=== PATIENT | male | born 1985 | race Caucasian/White ===

== ENCOUNTER → 2017-07-12 | Outpatient (CLI) | payer BC ==
[2017-07-12 16:46] LABS: HEP C IGG 13 YRS+OLDER_RFLX NEG (NEG)
== END | disposition home or self-care (01) ==
LOC: C.LAB 14:13
PROVIDERS: ATTEND Obstetrics & Gynecology Reproductive Endocrinology
DX: Z31.41 Encounter for fertility testing (principal); Z11.3 Encounter for screening for infections with a predominantly sexual mode of transmission; Z11.4 Encounter for screening for human immunodeficiency virus [HIV]; Z11.59 Encounter for screening for other viral diseases

== ENCOUNTER 2018-08-27 14:05 | Observation (INO) ==
[2018-08-27] MEDS ORDERED: SODIUM CHLORIDE 0.9% 1000ML 1,000 ML IV SCH (14:30)
[2018-08-27 14:34] LABS: Basophils # (auto) 0.02 K/uL (0-0.2); Basophils % (auto) 0.3 %; Eosinophils # (auto) 0.17 K/uL (0-0.5); Eosinophils % (auto) 2.9 %; Hemoglobin 15.1 g/dL (14.0-18.0); Immature Granulocytes # (auto) 0.01 K/uL (0.00-0.02); Immature Granulocytes % (auto) 0.2 %; Lymphocytes # (auto) 2.33 K/uL (1.2-3.4); Lymphocytes % (auto) 40.1 %; Mean Corpuscular Hgb Conc 35.1 g/dL (32-36); Mean Corpuscular Volume 94.1 fL (80-100); Mean Platelet Volume 9.3 fL (7.4-10.4); Monocytes # (auto) 0.77 K/uL (0.11-0.59); Monocytes % (auto) 13.3 %; Neutrophils # (auto) 2.51 K/uL (1.4-6.5); Neutrophils % (auto) 43.2 %; Platelet Count 244 K/uL (130-400); RDW Coefficient of Variation 12.2 % (11.5-14.5); RDW Standard Deviation 41.6 fL (36.4-46.3); Red Blood Count 4.57 M/uL (4.7-6.1); White Blood Count 5.81 K/uL (4.8-10.8)
[2018-08-27 14:51] LABS: Albumin Level 3.9 gm/dl (3.4-5.0); BUN Creatinine Ratio 13.1 (10-20); Calcium 9.2 mg/dl (8.5-10.1); Creatinine Clr Calc Pharmacy 127.3 ml/min; Est GFR (African American) 130.5; Est GFR (Non-African American) 112.6; Potassium 4.1 mmol/L (3.5-5.1)
[2018-08-27] MEDS ORDERED: CIPROFLOXACIN 400 MG/200 ML BAG IV STA (14:52)
[2018-08-27 14:54] LABS: Bilirubin,Total 0.7 mg/dl (0.2-1); Globulin 3.9 gm/dl (2.5-4.0); Total Protein 7.8 gm/dl (6.4-8.2)
--- NOTE | 2018-08-27 14:56 | History & Physical Report ---
Date of Service August 27, 2018 Assessment & Plan (1) Abdominal pain, acute, right lower quadrant: Exam suggests appendicitis, although clinical data equivocal, will proceed with laparoscopy and appendectomy. as above. +rovsing's. +heel tap. +mcburney's discussed options. pt with symptoms for 2 days now discussed bleeding/infection/dvt/pe/leaks/injury to other organs etc... questions answered will proceed with lap appy. History of Present Illness Primary Care Provider: NO PCP 33 y/o male with abdominal pain began 2 days ago and has remained constant, and localizing more to RLQ. No fevers or chills. Ate last around 3:30 this morning. Was in the ED last night, CT was equivocal for appendicitis, white count was normal and he was discharged home. Instructed to return today if his pain continued. Allergies Allergy/AdvReac Type Severity Reaction Status Date / Time Penicillins AdvReac Gastrointestinal Verified 08/27/18 01:43 Upset Home Medications Home Medications Medication Instructions Recorded Confirmed Type ranitidine HCl [Zantac Maximum 150 mg PO DAILY PRN 08/27/18 08/27/18 History Strength] Past Med/Surg History Medical History No pertinent past medical history Social History Preferred Language: Guyanese Feels Safe at Home: Yes Smoking Status: Never smoker Review of Systems Constitutional: no fever and no chills Gastrointestinal: + abdominal pain, + bloating and + diarrhea/loose stools (two times) Physical Exam Vital Signs (Past 24 Hours): Last Vital Signs Temp 36.8 C 08/27/18 14:08 Pulse 68 08/27/18 14:08 Resp 18 08/27/18 14:08 BP 156/88 H 08/27/18 14:08 Pulse Ox 97 08/27/18 14:08 Constitutional: WD/WN, vitals as above Respiratory: normal respiratory effort, lungs clear to auscultation Cardiovascular: RRR, no murmur, no edema Gastrointestinal (Abdomen): Percussion/Palpation: + abdomen tender (RLQ, + heel tap) and abdomen soft Results & Data Diagnostic Findings CT abd pelvis IV con only CLINICAL HISTORY: Right lower quadrant abdominal pain COMPARISON STUDY: None. TECHNIQUE: The patient was scanned in a dynamic helical fashion during intravenous administration of 93 cc Optiray 320 A dose lowering technique was utilized adhering to the principles of ALARA. CT DOSE: 458.94 mGy.cm FINDINGS: Lower chest: There are minor basilar atelectatic changes. Liver: The contrast-enhanced liver is normal in size, contour, and attenuation. There is no intrahepatic biliary ductal dilatation. The hepatic veins and portal veins are patent. Gallbladder: Unremarkable. Spleen: Normal in size and attenuation. Pancreas: Unremarkable. Adrenal glands: Unremarkable. Kidneys: There is symmetric renal cortical enhancement. The kidneys are normal in size without hydronephrosis. Bowel: There are no transition zones indicate bowel obstruction. There is no acute diverticulitis. There is mild dilatation of the appendiceal base which measures 10 mm. The study is equivocal for early acute appendicitis and clinical correlation and/or close follow-up will be necessary. Peritoneum: There is no intraperitoneal free air or abdominal ascites. There is a small fat-containing umbilical hernia Vasculature: The abdominal aorta is normal in course and caliber. Adenopathy: None. Pelvic viscera: The bladder, and pelvic viscera are unremarkable. Skeletal structures: No destructive osseous lesions are seen. IMPRESSION: 1. Study is equivocal for early acute appendicitis with dilatation of the appendiceal base. Clinical correlation and/or close follow-up will be necessary. 2. No evidence of bowel obstruction. No evidence of free air 3. Small fat-containing umbilical hernia Electronically signed by: Tu Gates M.D. 08/27/2018 6:43 AM
--- NOTE | 2018-08-27 15:33 | Emergency Department Note ---
History of Present Illness General Chief complaint: Abdominal Pain Stated complaint: LOWER RIGHT ABD. PAIN Source: patient Mode of arrival: ambulatory Limitations: no limitations History of Present Illness Maximum Pain Intensity: 6 This patient is a 33-year-old male who presents to the emergency department complaining of right lower quadrant abdominal pain. Patient's pain started 2 days ago. He initially had some generalized abdominal pain which soon moved to the right lower quadrant. He has had worsening pain with any movements and walking. Rates his discomfort a 6/10. He denies any nausea/vomiting. He has had a decreased appetite and has not eaten for approximately 12 hours. He was seen here overnight and told to return in 12 hours for recheck. He has not taken any meds for pain. Home Medications Home Medications Medication Instructions Recorded Confirmed Type ranitidine HCl [Zantac Maximum 150 mg PO DAILY PRN 08/27/18 08/27/18 History Strength] Allergies Allergy/AdvReac Type Severity Reaction Status Date / Time Penicillins AdvReac Gastrointestinal Verified 08/27/18 01:43 Upset Past Med/Surg History Medical History No pertinent past medical history Social History Preferred Language: Burkinan Feels Safe at Home: Yes Smoking Status: Never smoker Review of Systems A total of 10 systems reviewed and were otherwise negative Physical Exam Vital Signs Vital Signs - 24 hr 08/27/18 14:08 08/27/18 15:20 Temperature 36.8 C Temperature Source Oral Sepsis Recent Fever Within 48 Hours No Sepsis Action Taken by Nursing No Action Required Pulse Rate 68 Pulse Rate [Right Finger] 58 L Pulse Rhythm Regular Pulse Strength Normal Respiratory Rate 18 16 Respiratory Effort / Characteristics Non-Labored Non-Labored Spontaneous Respiratory Depth Normal Normal Respiratory Pattern Regular Blood Pressure 156/88 H Blood Pressure [Left Arm] 106/66 Blood Pressure Mean 110 Blood Pressure Mean [Left Arm] 79 Blood Pressure Position [Left Arm] Lying Pulse Oximetry 97 99 Oxygen Delivery Method Room Air Room Air VITALS: Vitals are noted on the nurse's note and reviewed by myself. Vital signs stable. GENERAL: This is a 33-year-old male, in no acute distress, nondiaphoretic, well- developed well-nourished. SKIN: The skin was without rashes. MOUTH: Mucous membranes moist. Tonsils are not enlarged. HEART: Regular rate and rhythm without murmurs gallops or rubs. LUNGS: Clear to auscultation bilaterally without wheezes, rales or rhonchi. ABDOMEN: Positive bowel sounds x 4. Soft and nondistended. Tenderness to palpation in the right lower quadrant with guarding and rebound tenderness. Positive Rovsing sign. NEURO: Patient was alert and oriented to person place and time. Course Consultations Consultation #1: Dr. Lugo - general surgery Administered Medications Ciprofloxacin (Cipro) 400 mg in 200 mls @ 200 mls/hr IV NOW STA Stop: 08/27/18 15:51 Last Admin: 08/27/18 15:14 Dose: 200 mls/hr Documented by: [id number] Discontinued Medications Sodium Chloride (Nss 1000ml) 1,000 mls @ 999 mls/hr IV .Q1H1M RCOAEL Stop: 08/27/18 15:30 Last Infusion: 08/27/18 15:28 Dose: 0 mls/hr Documented by: [id number] Admin: 08/27/18 14:30 Dose: 999 mls/hr Documented by: [id number] Medical Decision Making Differential Diagnosis Differential diagnosis includes appendicitis, gastroenteritis, kidney stone, UTI, colitis, diverticulitis, among others. Home Medications Current Medication List: was personally reviewed by me Laboratory Data Attestation: I reviewed the patient's lab results. Result diagrams: 08/27/18 14:17 08/27/18 14:17 Lab Results 08/27/18 08/27/18 Range/Units 14:17 14:17 WBC 5.81 (4.8-10.8) K/uL RBC 4.57 L (4.7-6.1) M/uL Hgb 15.1 (14.0-18.0) g/dL Hct 43.0 (42-52) % MCV 94.1 (80-100) fL MCH 33.0 (25-34) pg MCHC 35.1 (32-36) g/dL RDW Std Deviation 41.6 (36.4-46.3) fL RDW Coeff of Kaley 12.2 (11.5-14.5) % Plt Count 244 (130-400) K/uL MPV 9.3 (7.4-10.4) fL Immature Gran % (Auto) 0.2 % Neut % (Auto) 43.2 % Lymph % (Auto) 40.1 % [place] % (Auto) 13.3 % Eos % (Auto) 2.9 % Baso % (Auto) 0.3 % Immature Gran # (Auto) 0.01 (0.00-0.02) K/uL Neut # (Auto) 2.51 (1.4-6.5) K/uL Lymph # (Auto) 2.33 (1.2-3.4) K/uL [place] # (Auto) 0.77 H (0.11-0.59) K/uL Eos # (Auto) 0.17 (0-0.5) K/uL Baso # (Auto) 0.02 (0-0.2) K/uL Sodium 142 (136-145) mmol/L Potassium 4.1 (3.5-5.1) mmol/L Chloride 109 H (98-107) mmol/L Carbon Dioxide 27 (21-32) mmol/L Anion Gap 6.0 (3-11) BUN 12 (7-18) mg/dl Creatinine 0.90 (0.6-1.4) mg/dl Est Cr Clr Drug Dosing 127.3 ml/min Est GFR ( Amer) 130.5 Est GFR (Non-Af Amer) 112.6 BUN/Creatinine Ratio 13.1 (10-20) Glucose 95 (70-99) mg/dl Calcium 9.2 (8.5-10.1) mg/dl Total Bilirubin 0.7 (0.2-1) mg/dl AST 25 (15-37) U/L ALT 35 (12-78) U/L Alkaline Phosphatase 72 (45-117) U/L Total Protein 7.8 (6.4-8.2) gm/dl Albumin 3.9 (3.4-5.0) gm/dl Globulin 3.9 (2.5-4.0) gm/dl Albumin/Globulin Ratio 1.0 (0.9-2) Imaging Data My Impression: CT from last night reviewed and shows equivocal findings for early acute appendicitis. Blood Pressure Blood Pressure Findings: Normal blood pressure Blood Pressure Disposition: did not require urgent referral MDM Narrative The patient is a 33-year-old male who presents today complaining of right lower quadrant abdominal pain. Patient was seen here overnight and had a CT scan. The general surgeon recommended that he return in 12 hours for a recheck. I did review the CT and was read by our radiologist as equivocal for early acute appendicitis. Patient's presentation and physical exam is certainly consistent with appendicitis. I did speak with the general surgeon on-call, who came to evaluate the patient in the emergency department. He was given ciprofloxacin at request of the general surgeon. He declined any pain medication. Impression & Plan Acute appendicitis Discharge Plan Visit Data Chief Complaint: Abdominal Pain Stated Complaint: LOWER RIGHT ABD. PAIN ED Provider: Carlo Awad ED Midlevel Provider: Rayne Mendez Discharge Problem: Acute appendicitis Forms Stand Alone Forms: Call Back Authorization, My [facility] [place] [facility] Prescriptions Prescriptions: No Action ranitidine HCl [Zantac Maximum Strength] 150 mg Tablet 150 mg PO DAILY PRN (Reason: Heartburn) RF: 0 Referrals Referrals: PCP,NO [Primary Care Provider] -
[2018-08-27] MEDS ORDERED: BUPIVACAINE/EPINEPHRINE 0.5% MPF 1:200,000 30 ML VIAL ONE (16:10)
[2018-08-27] MEDS ORDERED: LIDOCAINE HCL 2% 2 ML VIAL/AMP(20MG/ML) INFIL ONE (16:24)
[2018-08-27] MEDS ORDERED: ONDANSETRON INJ 2 MG/ML 2 ML VIAL ONE (16:24)
[2018-08-27] MEDS ORDERED: NEOSTIGMINE METHYLSULFATE 5 MG/5 ML SYR ONE (16:24)
[2018-08-27] MEDS ORDERED: GLYCOPYRROLATE 0.2 MG/ML VIAL ONE ×2 (16:24→17:07)
[2018-08-27] MEDS ORDERED: DEXAMETHASONE SOD INJ 4 MG/ML VIAL ONE (16:24)
[2018-08-27] MEDS ORDERED: MIDAZOLAM HCL 1 MG/ML 2ML VIAL ONE (16:24)
[2018-08-27] MEDS ORDERED: PROPOFOL IV EMULSION 10 MG/ML 20 ML VIAL IV ONE (16:24)
[2018-08-27] MEDS ORDERED: fentaNYL citrate 100 MCG/2 ML VIAL ONE (16:24)
--- NOTE | 2018-08-27 16:35 | Anesthesiology Consultation ---
Date of Service August 27, 2018 Assessment & Plan Chart Review Chart Review: Acceptable Risk for Surgery and Patient NOT seen in Pre Admission Testing Consults Requested none ASA ASA1E Proposed Anesthesia Risk / Benefits Reviewed With: PT / POA / Parent / Guardian, Accepts Plan and Informed Consent Obtained NPO Date Last Intake of Fluids: 08/27/18 Time Last Intake of Fluids: 03:30 Date Last Intake of Solids: 08/27/18 Time Last Intake of Solids: 03:30 History Surgery Operation Date: 08/27/18 18:20 Proposed Procedures p Laparoscopic Appendectomy - Mk Lugo, DO Height/Weight Height: 5 ft 8 in Weight: 88.4 kg Allergies Allergy/AdvReac Type Severity Reaction Status Date / Time Penicillins AdvReac Gastrointestinal Verified 08/27/18 01:43 Upset Medications Home Medications Medication Instructions Recorded Confirmed Last Taken hydrocodone-acetaminophen [Hustle] 1 - 2 tab PO Q4H #15 tab 08/27/18 Unknown ranitidine HCl [Zantac Maximum 150 mg PO DAILY PRN 08/27/18 08/27/18 Unknown Strength] Past Medical History Medical History No pertinent past medical history Social History Smoking Status: Never smoker Exercise / Class Metabolic Activity II 4-5 Yardwork/Stairs/Walk up hill Review of Systems no chest pain or sob Physical Exam Vital Signs Last Vital Signs Temp 36.9 C 08/27/18 16:02 Pulse 64 08/27/18 16:02 Resp 20 08/27/18 16:02 BP 137/80 08/27/18 16:02 Pulse Ox 99 08/27/18 16:02 ENMT Mouth: no TMJ abnormality Thyromental Distance: > or= 3.5 Finger Breadths Mallampati Class: II Neck normal visual inspection Respiratory normal respiratory effort Cardiovascular Rate/Rhythm: regular rate and regular rhythm Neurologic moves all extremities Psychiatric Orientation: alert and oriented x 3 Testing Laboratory Results 08/27/18 14:17 08/27/18 14:17
[2018-08-27] MEDS ORDERED: ePHEDrine sulfate 50 MG/ML AMP ONE (17:07)
[2018-08-27] MEDS ORDERED: LARYING-O-JET KIT (LTA) ONE (17:07)
[2018-08-27] MEDS ORDERED: ROCURONIUM BROMIDE 10 MG/ML 5 ML VIAL ONE (17:07)
[2018-08-27] MEDS ORDERED: LABETALOL HCL IV 5 MG/ML 20ML IV PRN (17:18)
[2018-08-27] MEDS ORDERED: HYDROmorphone INJ 1 MG/ML SYRINGE IV PRN (17:18)
[2018-08-27] MEDS ORDERED: PHENYLEPHRINE 100MCG/ML 5ML SYR IV PRN (17:18)
[2018-08-27] MEDS ORDERED: ePHEDrine sulfate 50 MG/ML AMP IV PRN (17:18)
[2018-08-27] MEDS ORDERED: ATROPINE SULFATE 0.1 MG/ML 10ML SYR IV PRN (17:18)
[2018-08-27] MEDS ORDERED: MEPERIDINE HCL 25 MG/ML CARP IV PRN (17:18)
[2018-08-27] MEDS ORDERED: ONDANSETRON INJ 2 MG/ML 2 ML VIAL IV PRN ×2 (17:18→18:53)
[2018-08-27] MEDS ORDERED: KETOROLAC 30 MG/ML VIAL ONE (17:22)
--- NOTE | 2018-08-27 17:44 | Operative Report ---
Post Operative Report Pre & Post Diagnosis Operation Date: 08/27/18 18:20 Pre-Op Diagnosis: Acute appendicitis Post-Op Diagnosis: Acute appendicitis and umbilical hernia Procedure Operation Date: 08/27/18 18:20 Actual Procedures p Laparoscopic Appendectomy, and repair of umbilical hernia (Not Applicable) - Mk Lugo DO Surgeon Mk Lugo DO [facility] meaghan greenberg Estimated Blood Loss 5 Findings Consistent with Post-Op Diagnosis Specimens appendix Description of Procedure After informed consent was obtained the patient was taken to the operating room and placed in supine position. After successful intubation the left arm was tucked and the abdomen was shaved and sterilely prepped and draped in usual fashion. I noted that the patient had an incarcerated umbilical hernia. An incision was made directly over this and carried down through the soft tissue. We immediately encountered a hernia sac which we opened showing some preperitoneal fat incarcerated. I excised this using cautery. We then extended the hernia defect slightly inferiorly and placed 2 #0 Vicryl stay sutures. I was able to enter the hernia sac and perform a finger sweep. A 12 mm Fabian trocar was placed and the abdomen was insufflated to 18 mmHg. Laparoscope was inserted and the abdomen examined 360 degrees. A suprapubic 5 mm port in the left lower quadrant 12 mm port were placed. The patient was placed in a Trendelenburg position and slightly air planed to the left. We immediately evaluated the right lower quadrant. At first the appendix looked normal however when I grasp it it was definitely stiff and firm consistent with an early acute appendicitis. It was not perforated. I was able to create a small window in the mesentery of the appendix with a [place] dissector and use a BESSY brown cartridge 60 mm stapler to transect the appendix at its base with the cecum. A second firing of the same cartridge was used to take down the mesentery. It was placed into an Endo Catch bag, removed and sent to pathology. I ran the small bowel backwards from the cecum for about 6-8 feet all of which was normal. Large bowel was normal liver gallbladder stomach etc. was normal as well. There is no evidence of any inguinal hernias or other gross abnormality. There was no free fluid. I did irrigate the pelvis and right lower quadrant. There is adequate hemostasis at the end of the procedure. All the trochars were removed and the abdomen was desufflated. The fascia of the umbilical hernia was closed using 0 Ethibond in interrupted [id number] fashion. The umbilicus was tacked back down to fascia using 0 Vicryl. The skin was then closed using 4-0 Monocryl. The fascia left lower quadrant was closed using 0 Vicryl. It was irrigated and skin closed using 4-0 Monocryl. The suprapubic site was closed using 4-0 Monocryl as well. Marcaine was injected around all the incisions for postoperative analgesia and skin glue used as a dressing. The patient was awakened extubated and transferred recovery in stable condition. My physician store assistant was present for the entire case. He helped prep the patient. He helped run the camera and retract during my dissection as well as with wound closure and dressing placement. I attest to the content of the Intraoperative Record and any orders documented therein. Any exceptions are noted below.
[2018-08-27] MEDS: fentaNYL citrate 100 MCG/2 ML VIAL IV PRN ×4 (18:01→18:13)
--- NOTE | 2018-08-27 18:05 | Anesthesiology Progress Note ---
Date of Service August 27, 2018 Anesthesia Post Procedure Vital Signs Vital Signs: Temp Pulse Pulse Pulse Resp BP BP 08/27/18 18:00 58 L 20 151/81 H 08/27/18 17:50 57 L 17 129/74 08/27/18 17:40 36.2 C L 67 21 143/62 H 08/27/18 16:02 36.9 C 64 20 137/80 08/27/18 15:20 58 L 16 106/66 08/27/18 14:08 36.8 C 68 18 156/88 H Pulse Ox 08/27/18 18:00 91 08/27/18 17:50 96 08/27/18 17:40 92 08/27/18 16:02 99 08/27/18 15:20 99 08/27/18 14:08 97 Pain Intensity Right Lower Abdomen: Pain Intensity: 3 Notes Mental Status: alert / awake / arousable Patient Amnestic to Procedure: Yes Nausea / Vomiting: adequately controlled Pain: adequately controlled Airway Patency, RR, SpO2: stable & adequate BP & HR: stable & adequate Hydration State: stable & adequate Anesthetic Complications: no major complications apparent and Pt Satisfied with anesthetic care
[2018-08-27] MEDS ORDERED: HYDROCODONE/ACETAMOPHEN 5/325MG TAB PO PRN ×2 (18:53)
[2018-08-27] MEDS ORDERED: LACTATED RINGER'S 1,000 ML IV SCH (18:53)
[2018-08-27] MEDS ORDERED: KETOROLAC 30 MG/ML VIAL IV PRN (18:53)
[2018-08-27] MEDS: MoRPHine SULFATE 4 MG/ML 1 ML CARP\\VIAL IV PRN ×2 (19:43→22:49)
--- NOTE | 2018-08-28 07:34 | Surgery Progress Note ---
Date of Service August 28, 2018 Assessment & Plan (1) Acute appendicitis: POD 1 lap appy advance diet, ok for d/c when tolerating diet as above/doing well pre-op pain resolved ok for d/c after breakfast. instructions given. Subjective some pain from LLQ port site Physical Exam Vital Signs (Past 24 Hours): Last Vital Signs Temp 36.6 C 08/28/18 07:07 Pulse 80 08/28/18 07:07 Resp 18 08/28/18 07:07 BP 102/62 08/28/18 07:07 Pulse Ox 95 08/28/18 07:07 Gastrointestinal (Abdomen): Inspection/Auscultation: + abdominal surgical incision (clean, dry); abdomen not distended
--- NOTE | 2018-08-29 01:54 | Discharge Summary ---
PRIMARY DISCHARGE DIAGNOSES: Acute appendicitis and umbilical hernia. PROCEDURE PERFORMED: Laparoscopic appendectomy with primary umbilical hernia repair. HOSPITAL COURSE: The patient is a 33-year-old male who presented to Emergency Department with 2 days of abdominal pain. He had a CT overnight which was equivocal for acute appendicitis. His white count was normal. He returned to the Emergency Department complaining of continued pain. Due to the localized pain and tenderness, he was taken to the operating room for laparoscopic appendectomy. The appendix was thickened and firm. The procedure was well tolerated. He was transferred to the surgical floor for overnight observation. On postoperative day 1, he was able to tolerate diet and oral analgesics. His incisions were clean and dry. He was stable for discharge. DISCHARGE MEDICATIONS: Dunn 1-2 tablets every 4 hours as needed. Continue home Zantac 150 mg as needed. DISCHARGE INSTRUCTIONS: Discharge home. Follow up Dr. Lugo in 1-2 weeks. [id number]
== END 2018-08-28 10:01 | disposition home or self-care (01) ==
LOC: ED 14:05 → 3E 15:49 → OR 15:49